=== PATIENT | male | born 1960 | race Caucasian/White ===

== ENCOUNTER 2017-04-19 19:07 | Emergency (ER) | payer MEDICARE ==
--- NOTE | 2017-04-19 19:35 | Emergency Department Record ---
History of Present Illness - General Chief Complaint: Back Pain/Injury Stated Complaint: BACK PAIN Time Seen by Provider: 04/19/17 19:27 Source: Patient, Family Mode of Arrival: Ambulatory Limitations: No limitations - History of Present Illness Initial Comments: 57 yo male presents with back pain for about one week. The pain started mild but has progressed over the week. The pain is on the right lower back. The pain is sharp and worse with moving or twisting. The pain is worse with bending or standing. No fevers, chills, no abdominal pain. No significant radiation of the pain. No blood in the urine. No vomiting or diarrhea. No chills No history or trauma. MD Complaint: Back pain Onset/Timin -: Days(s) Similar Symptoms Previously: Yes Radiation: Right leg Severity: Severe Severity scale (1-10): 10 Quality: Sharp Consistency: Constant Improves With: None Worsens With: None Associated Symptoms: Denies other symptoms Treatments Prior to Arrival: Cold therapy, Heat therapy - Related Data Home Medications Medication Instructions Recorded Confirmed Last Taken Phenytoin Sodium Extended 200 mg PO QAM 08/05/15 04/19/17 04/19/17 [Dilantin] Phenytoin Sodium Extended 250 mg PO QHS 08/05/15 04/19/17 04/18/17 [Dilantin] Previous Rx's Medication Instructions Recorded Diazepam [Valium] 5 mg PO Q8H #12 tab 04/19/17 Hydrocodone/Acetaminophen [Concord 1 each PO Q6H #15 tablet 04/19/17 5-325 Tablet] Naproxen [Naprosyn] 500 mg PO Q12H #30 tab 04/19/17 Allergies Allergy/AdvReac Type Severity Reaction Status Date / Time No Known Drug Allergies Allergy Verified 07/21/16 15:02 Travel Screening - Travel/Exposure Within Last 30 Days Have you traveled within the last 30 days?: No Review of Systems Constitutional: Denies: Chills, Fever, Weakness Eyes: Denies: Eye discharge ENT: Denies: Congestion, Ear pain, Epistaxis, Throat pain Respiratory: Denies: Cough, Dyspnea, Hemoptysis, Wheezes Cardiovascular: Denies: Chest pain, Palpitations, Syncope Endocrine: Denies: Fatigue, Polydipsia, Polyuria Gastrointestinal: Denies: Abdominal pain, Diarrhea, Nausea, Vomiting Genitourinary: Denies: Dysuria, Frequency, Hematuria, Incontinence, Retention, Testicular pain, Urgency Musculoskeletal: Reports: Back pain, Myalgia. Denies: Joint swelling, Neck pain Skin: Denies: Bruising, Change in color, Rash Neurological: Denies: Headache, Numbness, Vertigo, Weakness Psychiatric: Denies: Anxiety Hematological/Lymphatic: Denies: Blood Clots, Easy bleeding, Easy bruising, Swollen glands Past Medical History - SOCIAL HISTORY Smoking Status: Never smoker Alcohol Use: None Drug Use: None - RESPIRATORY Hx Respiratory Disorders: No - CARDIOVASCULAR Hx Cardio Disorders: No - NEURO Hx Neuro Disorders: Yes Hx Seizures: Yes - GI Hx GI Disorders: No - Hx Genitourinary Disorders: No - ENDOCRINE Hx Endocrine Disorders: No - MUSCULOSKELETAL Hx Musculoskeletal Disorders: No - PSYCH Hx Psych Problems: No - HEMATOLOGY/ONCOLOGY Hx Hematology/Oncology Disorders: Yes Hx Blood Disorders: Yes (pyphoria) Family Medical History Any Significant Family History?: Yes Hx Cancer: Mother Hx Diabetes: Father, Mother Hx HTN: Father, Mother Physical Exam - General General Appearance: Alert, Oriented x3, Cooperative, No acute distress Limitations: No limitations - Head Head exam: Atraumatic, Normal inspection - Eye Eye exam: Normal appearance, PERRL. negative: Conjunctival injection, Periorbital swelling - ENT ENT exam: Normal exam, Mucous membranes moist, Normal external ear exam, Normal orophraynx Ear exam: Normal external inspection. negative: External canal tenderness Nasal Exam: Normal inspection. negative: Discharge, Sinus tenderness Mouth exam: Normal external inspection, Tongue normal Teeth exam: Normal inspection. negative: Dental caries Throat exam: Normal inspection. negative: Tonsillar erythema, Tonsillar exudate - Neck Neck exam: Normal inspection, Full ROM. negative: Tenderness - Respiratory Respiratory exam: Normal lung sounds bilaterally. negative: Respiratory distress - Cardiovascular Cardiovascular Exam: Regular rate, Normal rhythm, Normal heart sounds - GI/Abdominal GI/Abdominal exam: Other (Morbid obesity). negative: Soft, Guarding, Tenderness - Rectal Rectal exam: Deferred - exam: Deferred - Extremities Extremities exam: Normal inspection, Full ROM, Normal capillary refill. negative: Pedal edema, Tenderness Image of Full Body: 1 - tender right lower lumbar, no rash, reproducible with movement and twisting. - Back Back exam: Reports: Normal inspection, Full ROM, Paraspinal tenderness (right lower). Denies: CVA tenderness (R), CVA tenderness (L), Muscle spasm, Rash noted, Tenderness - Neurological Neurological exam: Alert, Normal gait, Oriented X3, Reflexes normal, Other (No foot drop). negative: Altered, Motor sensory deficit - Psychiatric Psychiatric exam: Normal affect, Normal mood - Skin Skin exam: Dry, Intact, Normal color, Warm Course Vital Signs 04/19/17 19:21 Temperature 98.3 F Pulse Rate [ 62 Pulse Ox Probe] Respiratory 18 Rate Blood Pressure 162/92 [Left Arm] Pulse Ox 96 - Reevaluation(s) Reevaluation #1: The CT scan was negative for any acute process No renal stone No other acute process of the abdomen or pelvis At the time of discharge the patient was moving much better with significant improvement in pain control We discussed home care, follow up and reasons to return to the ER 04/19/17 21:29 04/19/17 23:49 Medical Decision Making - Lab Data Result diagrams: 04/19/17 19:51 04/19/17 19:51 Disposition Disposition: Discharge Clinical Impression: Lumbar strain Qualifiers: Encounter type: initial encounter Qualified Code(s): S39.012A - Strain of muscle, fascia and tendon of lower back, initial encounter Disposition: Home, Self-Care Condition: (1) Good Instructions: Low Back Strain (ED) Additional Instructions: Call your doctor tomorrow for close follow up of your lumbar back pain Return if worse or uncontrolled pain or any new concerns. Prescriptions: Diazepam [Valium] 5 mg PO Q8H #12 tab Hydrocodone/Acetaminophen [Concord 5-325 Tablet] 1 each PO Q6H #15 tablet Naproxen [Naprosyn] 500 mg PO Q12H #30 tab.dr Forms: Patient Portal Access Time of Disposition: 21:32
[2017-04-19] MEDS ORDERED: MORPHINE SULFATE 5 MG/ML PFS IVP ONE (19:38)
[2017-04-19 20:27] LABS: BASO % 0.5 % (0-6); EOS % 2.8 % (0-6); GRAN % 68.4 % (47-80); HEMATOCRIT 45.2 % (42.0-52.0); HEMOGLOBIN 14.6 gm/dl (14.0-18.0); LYMPH % 17.1 % (16-45); MEAN CELL VOLUME 87.9 fl (81-97); MEAN CORPUSCULAR HEMOGLOBIN 28.4 pg (27-33); MEAN CORPUSCULAR HGB CONC 32.3 g/dl (32-36); MEAN PLATELET VOLUME 11.2 fl (7.4-10.4); MONO % 11.2 % (0-9); PLATELET COUNT 251 K/uL (130-400); RED BLOOD COUNT 5.14 M/uL (4.40-5.70); RED CELL DISTRIBUTION WIDTH 13.7 % (11.5-14.5); WHITE BLOOD COUNT W/O DIFF 6.1 K/uL (4.2-12.2)
[2017-04-19 20:50] LABS: ANION GAP 5.9 (7-16); BLOOD UREA NITROGEN 12 mg/dL (9-20); CARBON DIOXIDE 23.1 mmol/L (22-30); CREATININE 0.7 mg/dL (0.66-1.25); EST GLOMERULAR FILTRATION RATE > 60 ml/min; GLUCOSE,RANDOM 99 mg/dL (70-110)
[2017-04-19] MEDS ORDERED: KETOROLAC 30 MG/ML VIAL IVP ONE (20:59)
[2017-04-19] MEDS ORDERED: DIAZEPAM 5 MG/1 ML TUBX IVP ONE (20:59)
== END 2017-04-19 22:41 | disposition home or self-care (01) ==
LOC: ER 19:07
DX: S39.012A Strain of muscle, fascia and tendon of lower back, initial encounter (principal); M79.604 Pain in right leg; X58.XXXA Exposure to other specified factors, initial encounter
CPT/HCPCS: 99284 ×2; 96374; 96375; 85025; 80048; 74176; J1885; J2270; J3360

== ENCOUNTER 2017-05-25 21:30 | Emergency (ER) | payer MEDICARE ==
[2017-05-25] MEDS ORDERED: GLUCAGON 1 MG/VIAL IV ONE (21:39)
[2017-05-25] MEDS ORDERED: ONDANSETRON HCL IV 4 MG/2 ML VIAL IVP ONE (21:39)
[2017-05-25] MEDS ORDERED: DIAZEPAM 5 MG/1 ML TUBX IVP ONE (21:40)
--- NOTE | 2017-05-25 21:44 | Emergency Department Record ---
History of Present Illness - General Chief Complaint: Difficulty Swallowing Stated Complaint: VOMITING,PAIN SWALLOWING Time Seen by Provider: 05/25/17 21:34 Source: Patient Mode of Arrival: Ambulatory Limitations: No limitations - History of Present Illness Initial Comments: 57 yo male presents to ED with a CC of difficulty swallowing and ? esophageal foreign body. Patient reports that he was eating a piece of meat when his symptoms began 4.5 hours ago. Patient reports vomiting and inability to handle oral secretions. Patient reports chest pain resulting from his symptoms. Onset/Timin -: Hour(s) History of same: No Place: Home Severity: Severe Quality: Constant Improves With: None Worsens With: None On Anticoagulants: No Context: Sudden onset Associated Symptoms: Nausea/vomiting - Jones Coma Scale Eye Response: (4) Open spontaneously Motor Response: (6) Obeys commands Verbal Response: (5) Oriented Jones Total: 15 - Related Data Home Medications: Home Medications Medication Instructions Recorded Confirmed Last Taken Phenytoin Sodium Extended 200 mg PO QAM 08/05/15 05/25/17 05/25/17 [Dilantin] Phenytoin Sodium Extended 250 mg PO QHS 08/05/15 05/25/17 05/24/17 [Dilantin] Previous Rx's Medication Instructions Recorded Naproxen [Naprosyn] 500 mg PO Q12H #30 tab. 04/19/17 Allergies/Adverse Reactions: Allergies Allergy/AdvReac Type Severity Reaction Status Date / Time No Known Drug Allergies Allergy Verified 07/21/16 15:02 Review of Systems Constitutional: Denies: Chills, Fever, Malaise, Night sweats Eyes: Denies: Eye discharge, Eye pain ENT: Reports: Throat pain. Denies: Congestion, Ear pain Respiratory: Denies: Cough, Dyspnea Cardiovascular: Reports: Chest pain. Denies: Dyspnea on exertion Endocrine: Denies: Fatigue, Heat or cold intolerance Gastrointestinal: Reports: Nausea, Vomiting Genitourinary: Denies: Incontinence, Retention Musculoskeletal: Denies: Arthralgia, Back pain, Gout, Joint swelling Skin: Denies: Bruising, Change in color Neurological: Denies: Abnormal gait, Confusion, Headache, Seizure Psychiatric: Denies: Anxiety Hematological/Lymphatic: Denies: Anemia, Blood Clots Past Medical History - SOCIAL HISTORY Smoking Status: Never smoker Drug Use: None - RESPIRATORY Hx Respiratory Disorders: No - CARDIOVASCULAR Hx Cardio Disorders: No - NEURO Hx Neuro Disorders: Yes Hx Seizures: Yes - GI Hx GI Disorders: No - Hx Genitourinary Disorders: No - ENDOCRINE Hx Endocrine Disorders: No - MUSCULOSKELETAL Hx Musculoskeletal Disorders: No - PSYCH Hx Psych Problems: No - HEMATOLOGY/ONCOLOGY Hx Hematology/Oncology Disorders: Yes Hx Blood Disorders: Yes (pyphoria) Family Medical History Hx Cancer: Mother Hx Diabetes: Father, Mother Hx HTN: Father, Mother Physical Exam - General General Appearance: Alert, Oriented x3, Cooperative, Severe distress ( diaphoretic, actively vomiting on examination) Limitations: No limitations - Head Head exam: Atraumatic, Normocephalic, Normal inspection Head exam detail: negative: Abrasion, Contusion, King's sign, General tenderness, Hematoma, Laceration - Eye Eye exam: Normal appearance. negative: Conjunctival injection, Periorbital swelling, Periorbital tenderness, Scleral icterus - ENT Ear exam: negative: Auricular hematoma, Auricular trauma Nasal Exam: negative: Active bleeding, Discharge, Dried blood Mouth exam: negative: Drooling, Laceration, Muffled voice, Tongue elevation - Neck Neck exam: Normal inspection. negative: Meningismus, Tenderness - Respiratory Respiratory exam: Normal lung sounds bilaterally. negative: Rales, Respiratory distress, Rhonchi, Stridor - Cardiovascular Cardiovascular Exam: Regular rate, Normal rhythm, Normal heart sounds - GI/Abdominal GI/Abdominal exam: Soft. negative: Rebound, Rigid, Tenderness - Rectal Rectal exam: Deferred - exam: Deferred - Extremities Extremities exam: Normal inspection. negative: Pedal edema, Tenderness - Back Back exam: Denies: CVA tenderness (R), CVA tenderness (L) - Neurological Neurological exam: Alert, Normal gait, Oriented X3 - Psychiatric Psychiatric exam: Normal affect, Normal mood - Skin Skin exam: Normal color. negative: Abrasion Type of lesion: negative: abrasion Course - Reevaluation(s) Reevaluation #1: 05/25/17 21:44 EKG: NSR 73 Normal intervals, LAD No acute ST-T wave changes present Reevaluation #2: 05/25/17 22:32 Patient returned from radiology, reports that his symptoms are greatly improved. CXR reviewed and appears negative. Will trial oral fluids to determine if esophageal FB has resolved. Reevaluation #3: 06/27/17 22:45 CXR: No acute process Patient reassessed, he is tolerating oral fluids and reports that he is feeling much better. Patient appears stable for discharge with GI follow-up for possible dilation as an outpatient. Patient appears stable for discharge at this time. Disposition Disposition: Discharge Clinical Impression: Esophageal foreign body Qualifiers: Encounter type: initial encounter Qualified Code(s): T18.108A - Unspecified foreign body in esophagus causing other injury, initial encounter Disposition: Home, Self-Care Condition: (2) Stable Instructions: Esophageal Foreign Body (ED) Additional Instructions: Return to ED if your symptoms worsen or if you have any concerns. Follow-up with your Burn Crew Member in 5-7 days as directed. Forms: Patient Portal Access Time of Disposition: 22:47
--- NOTE | 2017-05-26 22:48 | RADIOLOGY REPORT ---
EXAM: CHEST 2 VIEWS HISTORY: Difficulty swallowing. Diaphoresis. There is epigastric pain. COMPARISON: Chest x-ray 08/05/15. TECHNIQUE: Two-view chest. FINDINGS: Lungs are clear. Cardiac silhouette is top normal in size. Diaphragm is unremarkable. Mild dextroconvex scoliosis of the thoracic spine. IMPRESSION: NO ACUTE INTRATHORACIC PROCESS. JOB NUMBER: [id number] MTDD
== END 2017-05-25 22:55 | disposition home or self-care (01) ==
LOC: ER 21:30
DX: T18.108A Unspecified foreign body in esophagus causing other injury, initial encounter (principal); R07.9 Chest pain, unspecified; R11.2 Nausea with vomiting, unspecified; R61 Generalized hyperhidrosis
CPT/HCPCS: 99284 ×2; 96374; 96375; 71020; 93005; 93010; J1610; J2405; J3360

== ENCOUNTER 2017-12-08 02:35 | Emergency (ER) | payer MEDICARE ==
[2017-12-08] MEDS: GLUCAGON 1 MG/VIAL IV ONE (02:45)
--- NOTE | 2017-12-08 02:46 | Emergency Department Record ---
History of Present Illness - General Chief Complaint: Choking Stated Complaint: CHOKING Time Seen by Provider: 12/08/17 02:40 Source: Patient Mode of Arrival: EMS Limitations: No limitations - History of Present Illness Initial Comments: 57 yo male presents to ED for evaluation of an esophageal FB. Patient reports that he was eating a hot dog approximately 8.5 hours ago, has been unable to handle secretions since that time. Patient reports a history intermittent difficulty swallowing but has never had retained FB. MD Complaint: Shortness of breath Onset/Timin -: Hour(s) Severity: Moderate Consistency: Constant Improves With: Nothing Worsens With: Nothing Associated Symptoms: Denies other symptoms Treatments Prior to Arrival: None - Related Data Previous Rx's Medication Instructions Recorded Naproxen [Naprosyn] 500 mg PO Q12H #30 tab. 04/19/17 Allergies Allergy/AdvReac Type Severity Reaction Status Date / Time No Known Drug Allergies Allergy Verified 07/21/16 15:02 Review of Systems Constitutional: Denies: Chills, Fever, Malaise, Night sweats Eyes: Denies: Eye discharge, Eye pain ENT: Denies: Congestion, Ear pain, Epistaxis Respiratory: Denies: Cough, Dyspnea Cardiovascular: Denies: Chest pain, Dyspnea on exertion Endocrine: Denies: Fatigue, Heat or cold intolerance Gastrointestinal: Reports: Nausea, Vomiting. Denies: Abdominal pain Genitourinary: Denies: Incontinence, Retention Musculoskeletal: Denies: Arthralgia, Back pain, Gout, Joint swelling Skin: Denies: Bruising, Change in color Neurological: Denies: Abnormal gait, Confusion, Headache, Seizure Psychiatric: Denies: Anxiety Hematological/Lymphatic: Denies: Anemia, Blood Clots Past Medical History - SOCIAL HISTORY Smoking Status: Never smoker Drug Use: None - RESPIRATORY Hx Respiratory Disorders: No - CARDIOVASCULAR Hx Cardio Disorders: No - NEURO Hx Neuro Disorders: Yes Hx Seizures: Yes - GI Hx GI Disorders: No - Hx Genitourinary Disorders: No - ENDOCRINE Hx Endocrine Disorders: No - MUSCULOSKELETAL Hx Musculoskeletal Disorders: No - PSYCH Hx Psych Problems: No - HEMATOLOGY/ONCOLOGY Hx Hematology/Oncology Disorders: Yes Hx Blood Disorders: Yes (pyphoria) Family Medical History Hx Cancer: Mother Hx Diabetes: Father, Mother Hx HTN: Father, Mother Physical Exam - General General Appearance: Alert, Oriented x3, Cooperative, Moderate distress Limitations: No limitations - Head Head exam: Atraumatic, Normocephalic, Normal inspection Head exam detail: negative: Abrasion, Contusion, King's sign, General tenderness, Hematoma, Laceration - Eye Eye exam: Normal appearance. negative: Conjunctival injection, Periorbital swelling, Periorbital tenderness, Scleral icterus - ENT Ear exam: negative: Auricular hematoma, Auricular trauma Nasal Exam: negative: Active bleeding, Discharge, Dried blood, Foreign body Mouth exam: negative: Drooling, Laceration, Tongue elevation - Neck Neck exam: Normal inspection. negative: Meningismus, Tenderness - Respiratory Respiratory exam: Normal lung sounds bilaterally. negative: Rales, Respiratory distress, Rhonchi, Stridor - Cardiovascular Cardiovascular Exam: Regular rate, Normal rhythm, Normal heart sounds - GI/Abdominal GI/Abdominal exam: Soft. negative: Rebound, Rigid, Tenderness - Rectal Rectal exam: Deferred - exam: Deferred - Extremities Extremities exam: Normal inspection. negative: Pedal edema, Tenderness - Back Back exam: Denies: CVA tenderness (R), CVA tenderness (L) - Neurological Neurological exam: Alert, Oriented X3 - Psychiatric Psychiatric exam: Normal affect, Normal mood - Skin Skin exam: Normal color. negative: Abrasion Type of lesion: negative: abrasion Course - Reevaluation(s) Reevaluation #1: 12/08/17 02:51 IV Glucagon and Zofran ordered to infuse, will reassess in 5-10 minutes. Reevaluation #2: 12/08/17 03:11 No improvement with Glucagon, [facility] contacted and is status Yellow, [facility] contacted and does not have ICU beds available. [facility] contacted, will franny back following GI consultation. Reevaluation #3: 12/08/17 03:20 Case was [address] with [address] Arech[facility] ([facility]), will be unable to perform EGD until 18:00 PM. Recommends transfer for GI consultation. Reevaluation #4: 12/08/17 03:22 Case was discussed with Dr. Joseph at [facility], will accept transfer for GI consultation upon arrival. 12/08/17 03:24 CXR: Cardiomegaly, nothing acute. Reevaluation #5: 12/08/17 03:38 EMS is present for transfer to [facility]. Critical Care Time Critical Care Time: Yes Total Critical Care Time: 35 Critical Care Time: Diagnosis and attempted treatment for esophagel FB, multiple phone calls to facilitate transfer for GI consultation, close airway observation for potential loss of airway requiring intubation. Disposition Disposition: Transfer Clinical Impression: Esophageal foreign body Qualifiers: Encounter type: initial encounter Qualified Code(s): T18.108A - Unspecified foreign body in esophagus causing other injury, initial encounter Disposition: Home, Self-Care Transfer To: [facility] Reason For Transfer: Esophageal FB Accepting Physician: Jake Time Discussed w/Accepting Physician: : Condition: (2) Stable Forms: Patient Portal Access Time of Disposition: : Quality - Quality Measures Quality Measures: N/A - Blood Pressure Screening Does Patient Have Any of the Following: No Blood Pressure Classification: Pre-Hypertensive BP Reading Systolic Measurement: 117 Diastolic Measurement: 85 Screening for High Blood Pressure: < Pre-Hypertensive BP, F/U Documented > [ [id number]] Pre-Hypertensive Follow-up Interventions: Referral to alternative/primary care provider.
[2017-12-08] MEDS: ONDANSETRON HCL IV 4 MG/2 ML VIAL IVP ONE (02:50)
--- NOTE | 2017-12-09 07:31 | RADIOLOGY REPORT ---
EXAM: PORTABLE CHEST HISTORY: CHOKED ON PIECE OF HOT DOG EIGHT HOURS AGO. PATIENT UNABLE TO SWALLOW. DIFFICULTY IN BREATHING. TECHNIQUE: A single mobile upright view of the chest was obtained. Comparison: Two view chest radiographic examination dated 05/25/17. FINDINGS: The cardiac silhouette projects mildly enlarged. No gross pulmonary venous hypertension is seen. No definite lung consolidation identified though evaluation of the left hemithorax space is mildly limited by underpenetration. No costophrenic angle blunting or pneumothorax. IMPRESSION: THE HEART PROJECTS MILDLY ENLARGED WITHOUT PULMONARY VENOUS HYPERTENSION. NO DEFINITE LUNG CONSOLIDATION THOUGH EVALUATION OF THE LEFT BASE IS LIMITED BY UNDERPENETRATION. JOB NUMBER: [id number] MTDD
== END 2017-12-08 03:45 | disposition home or self-care (01) ==
LOC: ER 02:35
DX: T18.128A Food in esophagus causing other injury, initial encounter (principal); R06.00 Dyspnea, unspecified; R10.13 Epigastric pain
CPT/HCPCS: 71045; 96374; 96375; 99285; J1610; J2405